=== PATIENT | female | born 1980 | race Caucasian/White ===

== ENCOUNTER 2017-08-07 07:55 | Day surgery (SDC) | payer OTHER ==
--- NOTE | 2017-07-24 07:30 | HP ---
PREOPERATIVE HISTORY AND PHYSICAL EXAM: DATE OF SURGERY/ADMISSION: 08/07/17. DATE OF OFFICE VISIT/ENCOUNTER: 07/22/17. ATTENDING SURGEON: Vernell Pompa MD.* (DICTATED BY CLARK MALDONADO) PROCEDURE: Left wrist de Quervain's release, ganglion cyst excision. CHIEF COMPLAINT: Left wrist pain, cyst. HISTORY OF PRESENT ILLNESS: This is a 37-year-old female who works at [employer]. She has developed pain in her left wrist over the past several months, which she attributes to repetitive motion work at [employer]. 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 She does not recall any injury outside of work to the thumb may have contributed to her symptoms. She had a cortisone injection administered by Dr. Moura at [facility]. However, it was not very helpful. Since then she has developed a small lump in the area of her pain at the tip of the radiostyloid. She denies any associated numbness or tingling. She has tried using a brace for the tendonitis, but it is too bothersome as it places pressure on the cyst. She is interested in pursuing surgical intervention for both of these problems and has consented to proceed with a left wrist de Quervain's release and ganglion cyst excision. PAST MEDICAL HISTORY: Anxiety/depression. PAST SURGICAL HISTORY: None. MEDICATIONS: 1. Mirena 52 mg. 2. Effexor XR daily. ALLERGIES: No known drug allergies. FAMILY MEDICAL HISTORY: A history of diabetes and hypertension. SOCIAL HISTORY: The patient is employed at [employer]. She is a former smoker. She quit in 2003. Prior to that she smoked approximately 5 cigarettes a day and did so for 10 years. She denies recreational drug use. She does drink alcohol on occasions. REVIEW OF SYSTEMS: General: Negative for fevers, chills or night sweats. Unexplained weight loss and gain. No know anesthesia problems. HEENT: Negative for headache, lightheadedness, syncopal episodes or visual changes. Integumentary: Negative for abrasions, lesions or open wounds. Cardiothoracic: Negative for hypertension, chest pain, palpitations, edema. Respiratory: Negative for shortness of breath with exertion, chronic cough, wheezing. GI: Negative for nausea, vomiting, diarrhea, constipation, or GERD. : Negative for nocturia, urinary frequency, urgency, history of UTIs and kidney problems. Musculoskeletal: Positive for current complaints. Negative for chronic or intermittent back pain or history of fractures. Neurological: Negative for paresthesias, numbness, history of seizure or stroke, poor balance. Positive for anxiety/depression. Endocrine: Negative for diabetes and thyroid issues. Hematologic: Negative for easy bruising, anemia, bleeding disorders, or DVT. Infectious Disease: Negative for history of MRSA, hepatitis C, HIV. PHYSICAL EXAMINATION GENERAL: Well-developed, well-nourished, 37-year-old female in no acute distress. VITAL SIGNS: Height 5 feet 4 inches, weight 200 pounds, pulse rate 88, blood pressure 130/82. HEENT: Normocephalic, atraumatic. Pupils are equal, round and reactive to light and accommodation. Extraocular movements are intact. Throat is clear. NECK: Supple. No palpable lymph nodes. PULMONARY: Lungs are clear to auscultation bilaterally. No wheezes, rales or rhonchi. CARDIOVASCULAR: Regular rate and rhythm. S1, S2. No murmurs, rubs or gallops. No edema. ABDOMEN: Positive bowel sounds, soft, nontender. MUSCULOSKELETAL: On exam of her left wrist, she has a ganglion cyst at the tip of the radiostyloid process, it is tender to palpation. She has tenderness to palpation as well along the first dorsal compartment and a positive Ryan' s test. She has pain with full wrist flexion and extension. She can make a full fist. Neurovascular function is intact. NEUROLOGICAL: Alert and oriented x3. Cranial nerves II through XII are intact. Sensation is intact to light touch. SKIN: Intact. IMAGING STUDIES: X-rays, AP, lateral and oblique of the left wrist appear normal. IMPRESSION: De Quervain's tenosynovitis on the left with a ganglion cyst. PLAN: Patient is scheduled for a left wrist de Quervain's release, ganglion cyst excision with Dr. Pompa on 08/07/17. We will plan on using absorbable sutures and Steri-Strips as the patient is leaving town approximately 5 days after surgery. We will plan on seeing her back in office prior to that for followup. A prescription for Ultracet was e-scribed to the patient's pharmacy for postoperative pain management. CLARK MALDONADO [id number]/[facility] #: [id number] [facility] HOSPITALRachel
[~2017-08-07 07:55] MED LIST: Buffered Lidocaine 0.9% SYRIN* 5 ML/SYR SYRINGE INTRADERM ONE; Sodium Citrate/Citric Acid* 15 ML UDC PO ONE
[2017-08-07] MEDS ORDERED: Sodium Citrate/Citric Acid* 15 ML UDC ONE (08:01)
[2017-08-07] MEDS ORDERED: Lidocaine 1% INJ* 10 MG/ML 30 ML SDV ONE (08:23)
[2017-08-07] MEDS ORDERED: Buffered Lidocaine 0.9% SYRIN* 5 ML/SYR SYRINGE ONE (08:29)
[2017-08-07] MEDS ORDERED: fentaNYL* 50 MCG/ML 2 ML VIAL (100 MCG VIAL) ONE (09:08)
[2017-08-07] MEDS ORDERED: Midazolam* 1 MG/ML 2 ML VIAL (2 MG) ONE (09:08)
[2017-08-07] MEDS ORDERED: Propofol* 10 MG/ML 20 ML BTL IV PUSH ONE (09:28)
[2017-08-07] MEDS ORDERED: Lidocaine 2% PF * 5 ML VIAL ONE (09:28)
[2017-08-07] MEDS ORDERED: Naloxone* 0.4 MG/ML 1 ML VIAL IV PRN (09:36)
[2017-08-07 09:40] VITALS: BP 113/68
--- NOTE | 2017-08-08 04:26 | OP ---
DATE OF OPERATION: 08/07/17 [facility] DATE OF : 82 SURGEON: Vernell Pompa MD MOLECULAR BIOLOGY SCIENTIST: CLARK Martinez ANESTHESIA: Local MAC. PRE-OP DIAGNOSIS: Left de Quervain's tenosynovitis with a ganglion cyst. POST-OP DIAGNOSIS: Left de Quervain's tenosynovitis with a ganglion cyst. OPERATIVE PROCEDURE: Left wrist de Quervain's release and ganglion cyst excision. ESTIMATED BLOOD LOSS: Zero. TOURNIQUET TIME: About 10 minutes. INDICATIONS FOR PROCEDURE: Katherine is a 37-year-old female with a painful mass on the radial styloid of her left wrist, also painful range of motion consistent with de Quervain's tenosynovitis. She presents for de Quervain's release and ganglion cyst excision. DESCRIPTION OF PROCEDURE: The patient was brought to the operating room, was given a sedation anesthetic and a local infiltration of 10 cc of 1% plain lidocaine centered at the radial styloid of her left wrist. The skin of her left hand and forearm was prepped and draped in the usual sterile fashion. The hand and forearm were exsanguinated and the tourniquet elevated to 250 mmHg. A longitudinal incision was made centered at the tip of the radial styloid. We dissected bluntly through the subcutaneous tissue and branches of the radial and sensory nerve were located and retracted by the hotel assistant general manager, Priscilla Jacobson. The ganglion cyst emanating from the first dorsal compartment sheath was excised and sent for Pathology. The remainder of the sheath was incised, completely releasing the APL and EPB tendons, which were in separate compartments. The wound was irrigated and the skin edges reapproximated with 4- 0 nylon suture. The wound was dressed with Xeroform, 4x4, Webril, and an Otilio wrap. The patient tolerated the procedure well and was brought to the recovery room in good condition. [id number]/[facility] #: [id number] [facility]
== END 2017-08-07 10:10 | disposition home or self-care (01) ==
LOC: OREAST 07:55
PROVIDERS: ATTEND Orthopaedic Surgery
DX: M65.4 Radial styloid tenosynovitis [de Quervain] (principal); M67.432 Ganglion, left wrist; F41.8 Other specified anxiety disorders; Z87.891 Personal history of nicotine dependence
CPT/HCPCS: 81025; 88304; A9270-GY; J2250; J2704; J3010

== ENCOUNTER 2018-12-13 10:32 | Emergency (ER) | payer SELFPAY ==
[2018-12-13] MEDS ORDERED: Al Hydrox/Mg Hydrox/Simet LIQ* 30 ML UDC PO ONE (10:57)
[2018-12-13] MEDS ORDERED: Lidocaine 2% VISCOUS* 15 ML UDC PO ONE (11:02)
[2018-12-13 11:30] VITALS: BP 111/76
--- NOTE | 2018-12-13 12:02 | UC ---
Abdominal Pain Female HPI - HPI Summary HPI Summary: Ms. Smith started with epigastric pain about 8 AM. She is not nauseated. She tried to eat something after the pain started was unable as it aggravated the pain. She's been moving bowels and bladder normally and denies . She describes the pain as waxing and waning. She has had something similar one other time remotely. - History of Current Complaint Chief Complaint: UCAbdominalPain Stated Complaint: ABDOMINAL COMPLAINT Time Seen by Provider: 12/13/18 10:50 Hx Obtained From: Patient Hx Last Menstrual Period: iud in place ?: No Onset/Duration: Sudden Onset Timing: Constant Severity Initially: Severe Severity Currently: Severe Pain Intensity: 8 Location: Epigastric Radiates: No Character: Sharp Aggravating Factor(s): Nothing Alleviating Factor(s): Nothing Allergies/Adverse Reactions: Allergies Allergy/AdvReac Type Severity Reaction Status Date / Time No Known Allergies Allergy Verified 12/13/18 10:44 Home Medications: Home Medications Fluoxetine HCl [Prozac] 1 tab PO DAILY 12/13/18 [History Confirmed 12/13/18] Levonorgestrel (Iud) [Mirena IUD] 1 unit INTRAUTERI ONCE 12/13/18 [History Confirmed 12/13/18] raNITIdine HCl [Ranitidine HCl] 1 tab PO ONCE PRN 12/13/18 [History Confirmed ] PMH/Surg Hx/FS Hx/Imm Hx Previously Healthy: Yes - Surgical History Surgical History: Yes Surgery Procedure, Year, and Place: left wrist surgery - Social History Alcohol Use: Weekly Alcohol Amount: 3-5 per week Substance Use Type: None Smoking Status (MU): Former Smoker Amount Used/How Often: 1/2 pack a day for 10 yrs When Did the Patient Quit Smoking/Using Tobacco: 2004 Review of Systems All Other Systems Reviewed And Are Negative: Yes Physical Exam - Summary Physical Exam Summary: She is nontoxic in appearance with stable vital signs but in obvious pain. Triage Information Reviewed: Yes Appearance: Pain Distress Vital Signs: Initial Vital Signs Temp 98.6 F 12/13/18 10:40 Pulse 84 12/13/18 10:40 Resp 18 12/13/18 10:40 BP 108/76 12/13/18 10:40 Pulse Ox 100 12/13/18 10:40 Vital Signs Reviewed: Yes Abdomen Description: Positive: Soft, Other: - She is primarily tender in the epigastrium and the left upper quadrant. Estrada's sign is negative. Negative: Distended, Guarding Abd Pain Female Course/Dx - Course Course Of Treatment: She improved significantly with a GI cocktail. On arrival prior to her signing in, I let her know that we are very limited in our evaluation of abdominal pain here. She requested a UA as she has been having some dysuria for quite some time. I recommended that we treat her with a GI cocktail to help with diagnosis but that my preference would be that we have her go to the emergency department for a more thorough evaluation. Since she did improve significantly with the GI cocktail consisting of viscous lidocaine and Maalox, I recommended that it have her use a PPI for couple days. I still recommended that she go to the emergency department for further evaluation but she is not interested. I do not think a gallbladder ultrasound or CAT scan is indicated at this time. - Differential Dx/Diagnosis Provider Diagnosis: Epigastric pain Discharge ED - Sign-Out/Discharge Documenting (check all that apply): Patient Departure All imaging exams completed and their final reports reviewed: No Studies - Discharge Plan Condition: Stable Disposition: HOME-RECOMMEND TO ED Patient Education Materials: Epigastric Pain (ED) Referrals: Yany Garner MD [Primary Care Provider] - Additional Instructions: I still think that the most appropriate thing would be for you to go to the emergency department to get a more thorough evaluation. Certainly I would request that a few if he were to worsen or develop any new symptoms. - Billing Disposition and Condition Condition: STABLE Disposition: Home-Recommend to ED
[2018-12-13] MEDS ORDERED: Famotidine TAB* 20 MG PO ONE (12:06)
== END 2018-12-13 12:14 | disposition home health service (06) ==
LOC: UCEAST 10:32
DX: R10.13 Epigastric pain (principal); R10.32 Left lower quadrant pain; Z87.891 Personal history of nicotine dependence
CPT/HCPCS: 81003; 84702; 87086; 99212; A9270-GY; G0463